=== PATIENT | female | born 1965 | race Caucasian/White ===

== ENCOUNTER 2017-05-18 11:22 | Outpatient (CLI) | payer BC ==
--- NOTE | 2017-05-18 13:47 | MMO ---
BILATERAL SCREENING MAMMOGRAM: DATE: 05/18/17 HISTORY: 51-year-old female for screening mammography. COMPARISON: 07/13/15, 07/11/14, 03/08/12. FINDINGS: Bilateral MLO and CC views of the breasts show scattered fibroglandular breast tissue. A benign-appe aring calcification is seen in the left breast. There is no evidence of suspicious mass, suspicious cluster of microcalcifications, or area of architectural distortion. Interpretation of this mammogram was performed with the assistance of computer-aided detection. IMPRESSION: BIRADS 2: Benign Finding(s) Annual screening mammography is recommended. POS: [facility]
== END 2017-05-18 11:23 | disposition home or self-care (01) ==
LOC: SCSMAMMO 11:22
PROVIDERS: ATTEND Obstetrics & Gynecology
DX: Z12.31 Encounter for screening mammogram for malignant neoplasm of breast (principal)
CPT/HCPCS: 77067; G0202

== ENCOUNTER 2018-09-20 08:47 | Outpatient (CLI) | payer BC ==
--- NOTE | 2018-09-20 10:50 | MMO ---
BILATERAL SCREENING MAMMOGRAM: HISTORY: A 52-year-old female. Routine screening mammography. COMPARISON: 05/18/2017, 07/13/2015, and 07/11/2014. TECHNIQUE: CC and MLO views of both breasts are submitted for interpretation. This patient's mammogram is revie wed with the assistance of computer-aided detection. FINDINGS: Breasts are composed of scattered fibroglandular tissue. Bilaterally, no suspicious dominant mass, a rchitectural distortion, or suspicious calcifications. Benign-appearing calcifications in the left b reast. IMPRESSION: BI-RADS category 2, benign findings. RECOMMENDATION: Annual mammogram. BIRADS 2: Benign Finding(s) Routine annual screening mammography (for women over age 40) POS: [facility]
== END 2018-09-20 08:48 | disposition home or self-care (01) ==
LOC: SCSMAMMO 08:47
PROVIDERS: ATTEND Family Medicine
DX: Z12.31 Encounter for screening mammogram for malignant neoplasm of breast (principal)
CPT/HCPCS: 77067